=== PATIENT | female | born 1995 | race Caucasian/White ===

== ENCOUNTER → 2018-08-29 | Day surgery (SDC) | payer OTHER ==
[~2018-08-29] MED LIST: Glycopyrrolate 0.2 MG/ML 2 ML SDV IVPUSH ONE; LORazepam 2 MG/ML SDV IVPUSH ONE; Midazolam 1 MG/ML 2 ML SDV ONE; Pantoprazole 40 MG Vial IVPUSH ONE; Propofol 200 MG/20 ML SDV ONE; Sodium Chloride 0.9% 1,000 ML IV ONE; Sodium Chloride 0.9% 10 ML Syringe FLUSH PRN; fentaNYL 100 MCG/2 ML SDV ONE
--- NOTE | 2018-08-29 05:12 | EDM.PDOC ---
<Kevin Parish - Last Filed: 08/29/18 05:09> ED HPI GENERAL MEDICAL PROBLEM - General Chief Complaint: Gastrointestinal Problem Stated Complaint: FOOD STUCK IN THROAT Time Seen by Provider: 08/29/18 05:09 Source of Information: Reports: Patient History Limitations: Reports: No Limitations - History of Present Illness INITIAL COMMENTS - FREE TEXT/NARRATIVE: This patient says that she has some chicken stuck in her upper esophagus. This happened a short while prior to arrival. This is happened several times in the past but she was always able to work it out in tonight she can't. She can't even handle her SALIVA and is frequently spitting up. esophagus Pain Score (Numeric/FACES): 8 - Related Data Allergies Allergy/AdvReac Type Severity Reaction Status Date / Time Pertussis Vaccines Allergy Hives Verified 08/29/18 03:29 Home Meds: Home Meds *Anxiety Med 08/29/18 [History] Levothyroxine 25 mcg PO ACBREAKFAST 08/29/18 [History] Past Medical History [employer] History: Reports: Psychiatric History: Reports: Anxiety Endocrine/Metabolic History: Reports: Hypothyroidism, Obesity/BMI 30+ - Past Surgical History GI Surgical History: Reports: Appendectomy Social & Family History - Tobacco Use Smoking Status *Q: Current Every Day Smoker Years of Tobacco use: 10 Packs/Tins Daily: 0.5 - Caffeine Use Caffeine Use: Reports: Coffee - Recreational Drug Use Recreational Drug Use: No ED ROS GENERAL - Review of Systems Review Of Systems: ROS reveals no pertinent complaints other than HPI. ED EXAM, GI/ABD - Physical Exam Exam: See Below Exam Limited By: Uncooperative General Appearance: WD/WN, Mild Distress, Other (She is frequently spitting up saliva and looks pretty uncomfortable) Eyes: Bilateral: Normal Appearance Throat/Mouth: Normal Inspection Neck: Normal Inspection Respiratory/Chest: No Respiratory Distress Neurological: Alert, Oriented, Normal Cognition Psychiatric: Normal Affect Skin Exam: Warm, Dry Course - Vital Signs Last Recorded V/S: Last Vital Signs Temp 36.5 C 08/29/18 08:30 Pulse 112 H 08/29/18 09:24 Resp 18 08/29/18 08:50 BP 133/79 08/29/18 09:24 Pulse Ox 95 08/29/18 09:24 - Orders/Labs/Meds Labs: Laboratory Tests 08/29/18 Range/Units 07:10 Urine HCG, Qual Negative Meds: Medications Discontinued Medications Generic Name Dose Route Start Last Admin Trade Name Génesis PRN Reason Stop Dose Admin Fentanyl Confirm 08/29/18 07:39 Sublimaze Administered 08/29/18 07:40 Dose 100 mcg .ROUTE .STK-MED ONE Glycopyrrolate 0.4 mg 08/29/18 06:47 08/29/18 07:44 Glycopyrrolate IVPUSH 08/29/18 06:48 0.4 mg ONETIME ONE Administration Sodium Chloride 1,000 mls @ 125 mls/hr 08/29/18 04:19 08/29/18 04:41 Normal Saline IV 08/29/18 12:18 125 mls/hr .BOLUS ONE Administration Lorazepam 1 mg 08/29/18 05:06 08/29/18 05:21 Ativan IVPUSH 08/29/18 05:07 1 mg ONETIME ONE Administration Midazolam HCl Confirm 08/29/18 07:39 Versed 1 Mg/Ml Administered 08/29/18 07:40 Dose 2 mg .ROUTE .STK-MED ONE Pantoprazole Sodium 40 mg 08/29/18 08:04 08/29/18 08:20 Protonix Iv IVPUSH 08/29/18 08:05 40 mg ONETIME ONE Administration Propofol Confirm 08/29/18 07:39 Diprivan 20 Ml Administered 08/29/18 07:40 Dose 200 mg .ROUTE .STK-MED ONE Sodium Chloride 10 ml 08/29/18 04:19 08/29/18 05:08 Saline Flush FLUSH 10 ml ASDIRECTED PRN Administration Keep Vein Open - Re-Assessments/Exams Free Text/Narrative Re-Assessment/Exam: 08/29/18 05:[address] Jones and he would like us to either hold her here or admit her and he will scope her at 8 AM. The patient presently is being given some 1 mg of Ativan IV Departure - Departure Disposition: Home, Self-Care 01 Clinical Impression: Esophageal foreign body - Discharge Information <Carolynn Metzger - Last Filed: 09/03/18 18:46> Course - Re-Assessments/Exams Free Text/Narrative Re-Assessment/Exam: 08/29/18 09:14 pt went to the OR and the chicken was pushed into the stomach. Departure - Departure Time of Disposition: 09:35
--- NOTE | 2018-08-31 07:54 | OR ---
DATE OF PROCEDURE: 08/29/2018 SURGEON: Macho Jones MD PREOPERATIVE DIAGNOSIS: Obstructing food bolus in esophagus. POSTOPERATIVE DIAGNOSIS: Obstructing food bolus (meat) at esophagogastric junction with edema and stricturing of the esophagogastric junction. OPERATIVE PROCEDURE: Upper GI endoscopy with: 1. Removal of foreign body from distal esophagus (72567). 2. Dilation of esophagogastric junction (01765). ANESTHESIA: IV sedation. INDICATION FOR PROCEDURE: This is a 23-year-old presenting with a picture of some meat getting caught in the esophagus. On questioning, the patient appeared probably to have some chronic gastroesophageal reflux disease, so we are likely dealing with some edema and/or stricturing in the esophagogastric junction leading to the current problem. She has not been on any medical management for this. The plan is to proceed with upper GI endoscopy with removal of foreign body with biopsies and/or dilation as indicated. Potential risks including bleeding, perforation, and aspiration of gastric contents were reviewed, and the patient wishes to proceed. DETAILS OF PROCEDURE: The patient was taken to the operating room and placed in a left lateral decubitus position. IV sedation was administered, after which the upper GI endoscope was passed orally into the distal esophagus. An aggregate of meat was evident. This was initially unable to be pushed through the EG junction. Following this then a guidewire using fluoroscopic surveillance was passed around the meat and further into the stomach. Initially, a 36-Lithuanian Savary dilator was passed and upon removal of the dilator, the scope was then passed once again. The passage of the 36-Lithuanian dilator successfully pushed the meat out of the esophagus and into the stomach. One additional dilation with 42- Lithuanian Savary dilator was then accomplished, after which the wire and the dilator were removed, and the patient tolerated the procedure well. The patient will be started on Protonix 40 mg IV in the recovery room and be given a prescription for 40 mg of Protonix daily and should be instructed to follow up with her personal physician in the [place] area in about 2 weeks regarding gastroesophageal reflux disease. Macho Jones MD /[id number]
== END ==
LOC: JP.ED 03:04 → JP.SDS 06:46
PROVIDERS: ATTEND Surgery
DX: T18.128A Food in esophagus causing other injury, initial encounter (principal); K22.2 Esophageal obstruction; F41.9 Anxiety disorder, unspecified; E03.9 Hypothyroidism, unspecified; F17.210 Nicotine dependence, cigarettes, uncomplicated; E66.9 Obesity, unspecified; Z68.35 Body mass index [BMI] 35.0-35.9, adult; Z88.7 Allergy status to serum and vaccine; Z79.899 Other long term (current) drug therapy
CPT/HCPCS: 43247; 43248; 81025; 96374; 96375; 99283; C9113; J2060; J2250; J2704; J3010; J3490; J7030; 99284